=== PATIENT | male | born 1980 | race Caucasian/White ===

== ENCOUNTER → 2020-11-18 03:16 | Outpatient (CLI) | payer SELFPAY ==
[2020-11-18 18:11] LABS: SARS-CoV-2 RNA PCR Negative
== END ==
PROVIDERS: PCP Family Medicine; Visit Provider Internal Medicine Gastroenterology
DX: Z01.812 Encounter for preprocedural laboratory examination (principal); Z20.822 Contact with and (suspected) exposure to COVID-19
CPT/HCPCS: C9803; U0003; U0005

== ENCOUNTER 2020-11-21 01:25 | Day surgery (SDC) | payer BC, SELFPAY ==
[2020-11-03 14:24] VITALS: BMI 36.6
--- NOTE | 2020-11-21 07:50 | WPDANESEPPF ---
Anes - Initial Pre Proc Eval Procedure: Operation Date: 11/21/20 09:00 Proposed Procedures p Esophagogastroduodenoscopy & Colonoscopy - Rayshawn Stout MD Date/Time: 11/21/20 07:50 Surgeon: Rayshawn Stout MD Pre Op Diagnosis: Anemia Patient Data Age: 39 Gender: M Height: 1.65 m Weight: 100 kg Allergies Allergy/AdvReac Type Severity Reaction Status Date / Time No Known Allergies Allergy Verified 11/10/20 09:20 Home Medications Medication Instructions Recorded Confirmed Type sodium,potassium,mag sulfates 17.5 See Rx Instructions PO .COMPLEX 11/02/20 11/10/20 Rx gram-3.13 gram-1.6 gram oral soln #354 ml amlodipine 10 mg-benazepril 20 mg 1 cap PO DAILY 11/10/20 11/10/20 History capsule clotrimazole-betamethasone 1 1 applic TOPICAL BID 14 Days #30 ml 11/10/20 11/10/20 Rx %-0.05 % lotion mupirocin 2 % topical ointment 1 applic TOPICAL BID #15 g 11/10/20 11/10/20 Rx Patient hx anesthesia problems: none Family hx anesthesia problems: none PMFSH Past Medical History Medical History Allergies Anxiety Depression Hypertension Surgical History Surgical History Esophageal rupture 2011 Obstructive tonsils and adenoids 1992 Ulcer 2012 Family History Family History Father Hypertension Grandparent Breast cancer Depression Anxiety Heart disease Grandparent Breast cancer Anxiety Depression Heart disease Thyroid disorder Social History Social History Smoking status: Never smoker Alcohol intake: never Substance use: never Substance use type: does not use Living arrangements: with family 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 Gender identity (if verbalized by the patient): Male Spiritual care concerns: No Agree to blood products: No Anes - Eval Final PreProcedure Day of Procedure 11/21/20 07:50 Patient weight: obese Heart: regular rate and rhythm Lungs: clear to auscultation and normal air movement Airway: Mallampati scale class II Neurological: alert and oriented Last oral intake: >/= 8 hours ASA classification: III Emergent: no Anesthetic plan: proceed Anesthesia type and monitoring: general GIVS Informed Consent: The patient's anesthetic plan and its attendant risks and benefits were discussed with the patient/family/POA. Questions were solicited and answers provided to the satisfaction of the patient/family/POA.
[2020-11-21] MEDS: LACTATED RINGERS 1,000 ML 150 ML IV CONT (07:57)
[2020-11-21 07:58] VITALS: BP 136/92; PULSE 76; RESP 22; TEMP 36.3; O2SAT 100; BMI 37.8
--- NOTE | 2020-11-21 08:11 | WPDHPUPDATE1 ---
History and Physical Update Update Date/Time: 11/21/20 08:11 History and Physical has been reviewed, including an updated exam of the patient. There are NO changes in the patient's condition. Risks, benefits, and alternatives have been discussed and questions answered. Patient agrees to proceed with procedure.
[2020-11-21 08:37] VITALS: BP 146/98; PULSE 77; RESP 15; O2SAT 97
[2020-11-21 08:47] VITALS: BP 98/55; PULSE 70; RESP 15; O2SAT 95
[2020-11-21 08:57] VITALS: BP 94/48; PULSE 63; RESP 15; O2SAT 100
[2020-11-21 09:07] VITALS: BP 99/63; PULSE 63; RESP 21; O2SAT 100
[2020-11-21 09:13] VITALS: BP 105/69; PULSE 70; RESP 21; O2SAT 100
--- NOTE | 2020-11-21 09:21 | SUR.PHASEII ---
Pt states will be going to work today. 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 Stated he will not be driving.
== END 2020-11-21 09:31 | disposition home or self-care (01) ==
PROVIDERS: PCP Family Medicine; Visit Provider Internal Medicine Gastroenterology
PROC: 0DJ08ZZ Inspection of Upper Intestinal Tract, Via Natural or Artificial Opening Endoscopic (ICD-10-PCS; CPT 43235; principal; 2020-11-21 09:00)
DX: D50.0 Iron deficiency anemia secondary to blood loss (chronic) (principal); D12.3 Benign neoplasm of transverse colon; K64.8 Other hemorrhoids; K21.00 Gastro-esophageal reflux disease with esophagitis, without bleeding; K44.9 Diaphragmatic hernia without obstruction or gangrene; K29.50 Unspecified chronic gastritis without bleeding; K25.9 Gastric ulcer, unspecified as acute or chronic, without hemorrhage or perforation; I10 Essential (primary) hypertension; F40.8 Other phobic anxiety disorders; E66.9 Obesity, unspecified; Z68.37 Body mass index [BMI] 37.0-37.9, adult
CPT/HCPCS: 45385; 43239; 87081; 88305; J2001; J2704; J7120